=== PATIENT | female | born 1970 | race American Indian/Alaskan Native ===

== ENCOUNTER 2016-08-02 13:56 | Emergency (ER) | payer SELFPAY ==
[2016-08-02 15:15] VITALS: BP 158/105
== END 2016-08-02 16:29 | disposition left against medical advice (07) ==
LOC: ED 13:56
DX: R51 Headache (principal); Z53.21 Procedure and treatment not carried out due to patient leaving prior to being seen by health care provider

== ENCOUNTER 2016-12-11 07:15 | Emergency (ER) | payer OTHER, BC ==
[2016-12-11 07:27] VITALS: BP 118/96
[2016-12-11] MEDS ORDERED: BOOSTRIX IM ONE (08:28)
[2016-12-11] MEDS ORDERED: NORCO 7.5/325 PO ONE (08:28)
[2016-12-11] MEDS ORDERED: FLEXERIL PO ONE (08:28)
[2016-12-11] MEDS ORDERED: XYLOCAINE 1% MPF 5 mL INFILTRATI ONE (08:29)
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
--- NOTE | 2016-12-11 10:14 | XRay Report ---
LUMBOSACRAL SPINE, 3 VIEWS: History: Back pain Findings: The vertebral bodies, disk spaces and posterior elements are intact. No compression deformity or malalignment. The SI joints are symmetric and unremarkable. Impression: 1. No evidence for acute injury to the lumbar spine.
[2016-12-11] MEDS ORDERED: TRIPLE ANTIBIOTIC TP ONE (10:53)
[2016-12-11] MEDS ORDERED: TYLENOL #3 PO ONE (10:53)
== END 2016-12-11 11:24 | disposition home or self-care (01) ==
LOC: ED 07:15
DX: S41.111A Laceration without foreign body of right upper arm, initial encounter (principal); V49.49XA Driver injured in collision with other motor vehicles in traffic accident, initial encounter; X58.XXXA Exposure to other specified factors, initial encounter; Y93.9 Activity, unspecified; Y92.9 Unspecified place or not applicable; Y99.9 Unspecified external cause status
CPT/HCPCS: 72100; 90471; 90715; A6250

== ENCOUNTER 2016-12-18 11:13 | Emergency (ER) | payer OTHER, BC ==
[2016-12-18 11:27] VITALS: BP 137/92
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
== END 2016-12-18 11:55 | disposition home or self-care (01) ==
LOC: ED 11:13
DX: Z48.02 Encounter for removal of sutures (principal)

== ENCOUNTER 2017-07-31 19:18 | Emergency (ER) | payer OTHER, BC ==
[2017-07-31] MEDS ORDERED: CATAPRES ONE (20:40)
[2017-07-31] MEDS ORDERED: CATAPRES PO ONE (20:42)
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
[2017-08-01 01:54] VITALS: BP 149/100
== END 2017-07-31 22:00 | disposition home or self-care (01) ==
LOC: ED 19:18
DX: M79.1 Myalgia (principal)
CPT/HCPCS: 99282

== ENCOUNTER 2017-08-14 15:36 | Emergency (ER) | payer OTHER, BC ==
[2017-08-14 16:26] VITALS: BP 142/91
--- NOTE | 2017-08-14 19:37 | XRay Report ---
FINAL REPORT PROCEDURE: Right knee. TECHNIQUE: Three views. HISTORY: Pain and swelling, knee injury. COMPARISON: No prior studies are available for comparison. FINDINGS: There is a curvilinear piece of bone adjacent to the medial femoral condyle. This may represent an unfused apophysis. I doubt that this represents an acute fracture. The bones otherwise appear intact. There is mild narrowing of the medial compartment of the knee joint. There is some osteophyte formation. The soft tissues are unremarkable. There is no evidence of a knee effusion. IMPRESSION: Osteoarthritis. 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
== END 2017-08-14 18:06 | disposition left against medical advice (07) ==
LOC: ED 15:36
DX: M79.89 Other specified soft tissue disorders (principal); Z53.21 Procedure and treatment not carried out due to patient leaving prior to being seen by health care provider

== ENCOUNTER 2017-08-15 15:38 | Emergency (ER) | payer BC, OTHER ==
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
== END 2017-08-15 17:46 | disposition home or self-care (01) ==
LOC: ED 15:38
DX: M17.11 Unilateral primary osteoarthritis, right knee (principal); M25.561 Pain in right knee
CPT/HCPCS: 99282

== ENCOUNTER 2017-09-05 14:08 | Emergency (ER) | payer BC, OTHER ==
[2017-09-05] MEDS ORDERED: ASPIRIN PO ONE (14:26)
[2017-09-05 15:04] LABS: Basophils % (Auto) 0.5 % (0.0-1.8); Eosinophils # (Auto) 0.1 K/mm3 (0.0-0.4); Eosinophils % (Auto) 1.4 % (0.0-4.3); Hematocrit 36.1 % (30.3-42.9); Lymphocytes # (Auto) 3.4 K/mm3 (1.2-5.4); Lymphocytes % (Auto) 44.9 % (13.4-35.0); Mean Corpuscular HGB Conc 33 % (30-34); Mean Corpuscular Hemoglobin 27 pg (28-32); Mean Corpuscular Volume 82 fl (79-97); Monocytes # (Auto) 0.4 K/mm3 (0.0-0.8); Monocytes % (Auto) 5.6 % (0.0-7.3); Platelet Count 374 K/mm3 (140-440); Red Blood Count 4.42 M/mm3 (3.65-5.03); Red Cell Distribution Width 14.4 % (13.2-15.2)
[2017-09-05 15:13] LABS: BUN/Creatinine Ratio 14; Blood Urea Nitrogen 10 mg/dL (7-17); Calcium 8.6 mg/dL (8.4-10.2); Hemolysis Index 12
[2017-09-05 18:28] VITALS: BP 151/94
[2017-09-05] MEDS ORDERED: PEPCID PO ONE (20:44)
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
--- NOTE | 2017-09-05 21:58 | XRay Report ---
FINAL REPORT PROCEDURE: XR CHEST ROUTINE 2V TECHNIQUE: PA and lateral chest radiographs were obtained. CPT 73772 HISTORY: dyspnea COMPARISON: No prior studies are available for comparison. FINDINGS: Heart: Normal. Mediastinum/Vessels: Normal. Lungs/Pleural space: Normal. Bony thorax: No acute osseous abnormality. Other: IMPRESSION: Normal examination.
== END 2017-09-05 21:27 | disposition home or self-care (01) ==
LOC: ED 14:08
DX: R07.89 Other chest pain (principal); E66.01 Morbid (severe) obesity due to excess calories; Z68.43 Body mass index [BMI] 50.0-59.9, adult; Z98.51 Tubal ligation status
CPT/HCPCS: 36415; 71046; 80048; 84484; 85025; 93005; 93010

== ENCOUNTER 2017-09-29 14:59 | Emergency (ER) | payer BC ==
[2017-09-29 15:20] VITALS: BP 158/90
--- NOTE | 2017-09-29 17:31 | Emergency Department Report ---
Blank Doc - Documentation Documentation: Patient is a 71-iqhg-xys-[place] female who is presenting with chest pain. Patient states for the past week she's been having chest pain it lasts up to 5 is times this is a tight sensation which shortly breath. Systems sometimes it' s with exertion sometimes this was rest she denies any nausea or vomiting. She was here about a month ago for his acid reflux states this is different. Patient does have a history of borderline elevated blood pressure. Patient will be sent f to a treatment room for blood work including a troponin EKG is within normal limits patient will also have a chest x-ray will be reassessed. Or
[2017-09-29 17:57] LABS: Basophils # (Auto) 0.1 K/mm3 (0.0-0.1); Basophils % (Auto) 0.9 % (0.0-1.8); Eosinophils # (Auto) 0.1 K/mm3 (0.0-0.4); Eosinophils % (Auto) 0.8 % (0.0-4.3); Lymphocytes # (Auto) 3.5 K/mm3 (1.2-5.4); Lymphocytes % (Auto) 42.5 % (13.4-35.0); Mean Corpuscular HGB Conc 33 % (30-34); Mean Corpuscular Hemoglobin 27 pg (28-32); Mean Corpuscular Volume 82 fl (79-97); Monocytes # (Auto) 0.6 K/mm3 (0.0-0.8); Monocytes % (Auto) 6.7 % (0.0-7.3); Platelet Count 366 K/mm3 (140-440); Red Blood Count 4.49 M/mm3 (3.65-5.03); Red Cell Distribution Width 14.4 % (13.2-15.2)
[2017-09-29 18:10] LABS: BUN/Creatinine Ratio 12; Blood Urea Nitrogen 7 mg/dL (7-17); Hemolysis Index 15
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
--- NOTE | 2017-09-29 19:42 | XRay Report ---
FINAL REPORT EXAM: XR CHEST ROUTINE 2V HISTORY: chest pain TECHNIQUE: Two view chest PA and lateral PRIORS: Comparison is dated September 05, 2017 FINDINGS: Cardiac and mediastinal contours are unremarkable. No focal pulmonary infiltrate is identified. No pleural fluid collection seen. Pulmonary vasculature is unremarkable. IMPRESSION: Negative two-view chest
== END 2017-09-29 18:56 | disposition home or self-care (01) ==
LOC: ED 14:59
DX: R07.9 Chest pain, unspecified (principal); E66.01 Morbid (severe) obesity due to excess calories
CPT/HCPCS: 36415; 71046; 80048; 84484; 85025; 93005; 93010

== ENCOUNTER 2017-10-25 01:15 | Emergency (ER) | payer BC ==
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
--- NOTE | 2017-10-25 07:17 | XRay Report ---
FINAL REPORT EXAM: XR CHEST ROUTINE 2V HISTORY: CP TECHNIQUE: PA and lateral views of the chest were obtained and compared to the study of 09/29/2017 FINDINGS: The heart size and mediastinum appear normal. The lungs are clear. The lungs are not congested. Pleural fluid is not seen. The skeletal structures do not show any acute changes. IMPRESSION: No active chest disease.
[2017-10-25 07:35] LABS: Basophils % (Auto) 0.4 % (0.0-1.8); Eosinophils # (Auto) 0.2 K/mm3 (0.0-0.4); Eosinophils % (Auto) 2.6 % (0.0-4.3); Hematocrit 36.5 % (30.3-42.9); Hemoglobin 11.8 gm/dl (10.1-14.3); Lymphocytes # (Auto) 3.7 K/mm3 (1.2-5.4); Lymphocytes % (Auto) 53.9 % (13.4-35.0); Mean Corpuscular HGB Conc 32 % (30-34); Mean Corpuscular Hemoglobin 26 pg (28-32); Mean Corpuscular Volume 82 fl (79-97); Monocytes # (Auto) 0.5 K/mm3 (0.0-0.8); Platelet Count 357 K/mm3 (140-440); Red Blood Count 4.45 M/mm3 (3.65-5.03); Red Cell Distribution Width 14.3 % (13.2-15.2)
[2017-10-25 07:51] LABS: BUN/Creatinine Ratio 14; Blood Urea Nitrogen 10 mg/dL (7-17); Calcium 9.5 mg/dL (8.4-10.2); Hemolysis Index 4
[2017-10-25] MEDS ORDERED: TORADOL IM ONE (08:34)
[2017-10-25 10:28] VITALS: BP 171/110
== END 2017-10-25 10:30 | disposition home or self-care (01) ==
LOC: ED 01:15
DX: I10 Essential (primary) hypertension (principal); R07.89 Other chest pain; E66.01 Morbid (severe) obesity due to excess calories; Z98.51 Tubal ligation status
CPT/HCPCS: 36415; 71046; 80048; 82550; 83880; 84484; 85025; 93005; 93010; 96372; 99284; J1885

== ENCOUNTER 2018-09-25 10:51 | Day surgery (SDC) | payer BC ==
[~2018-09-25 10:51] MED LIST: ANCEF/STERILE WATER 2 GM/20 ML 2 GM/20 ML SYRINGE IV NR; LACTATED RINGERS 1,000 ML IV SCH; NEURONTIN PO SCH; TYLENOL PO ONE
--- NOTE | 2018-09-25 10:57 | Short Stay Summary ---
Short Stay Documentation Date of service: 09/25/18 - History H&P: obtained from office - Allergies and Medications Current Medications: Allergies No Known Allergies Allergy (Verified 09/24/18 12:45) Home Medications Medication Instructions Recorded Confirmed Last Taken Type Aspirin [Adult Aspirin] 81 mg PO DAILY 01/08/18 09/24/18 Unknown History amLODIPine [Norvasc] 5 mg PO DAILY 09/24/18 09/24/18 Unknown History traMADol [Ultram] 50 mg PO Q6HR PRN 09/24/18 09/24/18 Unknown History Active Medications Celecoxib (Celebrex) 200 mg PO PREOP NR Stop: 09/25/18 23:59 Gabapentin (Neurontin) 900 mg PO PREOP EVETTE Lactated Ringer's (Lactated Ringers) 1,000 mls @ 75 mls/hr IV DIRECT EVETTE Cefazolin Sodium (Ancef/Sterile Water 2 Gm/20 Ml) 2 gm in 20 mls @ 80 mls/hr IV PREOP NR; Protocol Stop: 09/25/18 23:59 - Physical exam General appearance: no acute distress Lungs: Normal air movement Neurological: Normal speech - Brief post op/procedure progress note Date of procedure: 09/25/18 (dictation: [id number]) Pre-op diagnosis: ventral and umbilical hernia Post-op diagnosis: other (incarcerated ventral hernia and reducible umbilical hernia) Procedure: robotic ventral and umbilical hernia repair IVF 2100 EBL 50 UOP 750 Anesthesia: GETA Findings: incarcerated ventral hernia with omentum; reducible umbo hernia. adhesions in the LLQ. Surgeon: MART ALEGRIA Estimated blood loss: 50-100ml Pathology: none Condition: stable - Hospital course Hospital course: uneventful - Disposition Condition at discharge: Stable Disposition: DC-01 TO HOME OR SELFCARE Short Stay Discharge Plan Activity: other Wound: open to air, keep clean and dry Additional Instructions: Post-op Instructions: Apply an ice pack to the wounds for 10 to 20 minutes at a time. Do this at least 4 to 5 times a day. You may shower tomorrow. Pat dry the wounds. For the 1st 2 days, use ibuprofen and Tylenol on a scheduled basis. Take 600 mg of ibuprofen with food every 6 hours. Take 500 mg of Tylenol every 6 hours. Alternate these 2 medications. As an example, take the ibuprofen 1st. 3 hours later, take the Tylenol. After another 3 hours, take the ibuprofen again. Keep alternating this pattern for the 1st 2 days. As you can see, you will be taking each medicine every 6 hours. After 2 days, take the medications as needed for pain. Only take the prescription medicine if you have severe pain and the above measures are not working. Diet Have something light tonight, such as liquids. May have anything that you are comfortable with thereafter. It is important to stay well hydrated. No driving until you return to the surgery clinic for your follow-up visit. Wear abdominal binder during the day. May keep off at night if it is uncomfortable. Please call if you have any questions. Follow up with: PRIMARY MD RAFAEL [Primary Care Provider] - 7 Days MART ALEGRIA MD [Staff Physician] - 14 Days Forms: Outpatient Surgery DC Inst. Prescriptions: Oxycodone HCl [oxyCODONE] 10 mg PO Q6H PRN #30 tablet PRN Reason: Pain , Severe (7-10)
[2018-09-25] MEDS ORDERED: SUBLIMAZE ONE ×2 (11:17→11:53)
[2018-09-25] MEDS ORDERED: DIPRIVAN 10 MG/ML IV ONE (11:17)
[2018-09-25] MEDS ORDERED: ZEMURON IV ONE ×2 (11:23→16:08)
[2018-09-25] MEDS ORDERED: QUELICIN ONE ×2 (11:23→16:08)
[2018-09-25] MEDS ORDERED: ROBINUL ONE ×2 (11:23→18:17)
[2018-09-25] MEDS ORDERED: XYLOCAINE MPF 2% ONE (11:23)
[2018-09-25] MEDS ORDERED: NEO SYNEPHRINE/NS Syringe(OR USE) IV ONE (11:23)
[2018-09-25] MEDS ORDERED: XYLOCAINE 1% 20 mL ONE ×2 (11:54→11:56)
[2018-09-25] MEDS ORDERED: VERSED ONE (11:54)
[2018-09-25] MEDS ORDERED: MARCAINE-EPI 0.25%-1:200,000 INFILTRATI ONE (11:55)
[2018-09-25] MEDS ORDERED: MARCAINE 0.5% INFILTRATI ONE (11:56)
[2018-09-25] MEDS ORDERED: TYLENOL PO ONE (12:00)
--- NOTE | 2018-09-25 12:47 | Anesthesia Consultation ---
Anesthesia Consult and Med Hx - Airway Anesthetic Teeth Evaluation: Poor ROM Head & Neck: Adequate Mental/Hyoid Distance: Adequate Mallampati Class: Class II Intubation Access Assessment: Probably Good - Pulmonary Exam CTA: Yes - Cardiac Exam Cardiac Exam: RRR - Pre-Operative Health Status ASA Pre-Surgery Classification: ASA3 Proposed Anesthetic Plan: General Nerve Block: Tap Block - Pulmonary Hx Smoking: No Hx Asthma: No - Cardiovascular System Hx Hypertension: Yes (2018) - Central Nervous System Hx Psychiatric Problems: No - Other Systems Hx Alcohol Use: Yes Hx Substance Use: No Hx Obesity: Yes - Additional Comments Anesthesia Medical History Comments: 47 year old with HTN , peripheral neuropathy and obesity for robotic hernia repair , will get GA and TAP block
--- NOTE | 2018-09-25 12:48 | Anesthesia Day of Surgery ---
Anesthesia Day of Surgery - Day of Surgery Patient Examined: Yes Patient H&P Reviewed: Yes Patient is NPO: Yes
[2018-09-25] MEDS ORDERED: DILAUDID IV PRN ×2 (13:00→18:16)
[2018-09-25] MEDS ORDERED: ZOFRAN IV PRN ×2 (13:00→18:16)
[2018-09-25] MEDS ORDERED: NACL 0.9% IR ONE (14:48)
[2018-09-25] MEDS ORDERED: WATER FOR IRRIG STERILE IR ONE (14:48)
[2018-09-25] MEDS ORDERED: NARCAN 0.4 MG/1 ML IV PRN (18:16)
[2018-09-25] MEDS ORDERED: REGLAN IV PRN (18:16)
[2018-09-25] MEDS ORDERED: BLOXIVERZ ONE (18:17)
[2018-09-25] MEDS ORDERED: TORADOL ONE (18:17)
[2018-09-25 19:40] VITALS: BP 150/91
--- NOTE | 2018-09-26 01:01 | Operative Report ---
PREOPERATIVE DIAGNOSIS: Symptomatic ventral hernia. POSTOPERATIVE DIAGNOSES: Incarcerated ventral hernia and umbilical hernia. PROCEDURE: Robotic-assisted ventral and umbilical hernia repairs with primary closure and mesh placement. ATTENDING PHYSICIAN: Jeremiah Ramirez MD ANESTHESIA: General. ESTIMATED BLOOD LOSS: Less than 50 mL. FLUIDS: 2100 mL. URINE OUTPUT: 250 mL. FINDINGS: The patient had an incarcerated omentum in a ventral hernia that was approximately 3 cm in diameter. There was also a small umbilical hernia that was slightly less than 2 cm in diameter, but it had no incarcerated contents. The contents were reducible. Adhesions were noted in the lower portion of the abdomen going towards the left lower quadrant. The rest of the abdomen was normal. SPECIMENS: None. IMPLANTS: Ventralight mesh, 15 x 20 cm mesh was used. DRAINS: None. COMPLICATIONS: Stable, transferred to Recovery Room. INDICATIONS: This is a 47-year-old female who presented to the office with complaints of mid abdominal pain. The patient was found to have a ventral hernia on examination that was nonreducible. Over the time, the patient reports the hernia has become larger and more painful. The patient would like repair. CT scan had been done, which showed 2 hernias, 1 incarcerated ventral hernia and another small umbilical hernia. The patient has been in need for robotic-assisted repair. Procedure, risks and benefits were explained to the patient. Risks included but were not limited to infection, bleeding, pain, possible recurrence, possible need for more procedures in the future. The patient understood and consented. DESCRIPTION OF PROCEDURE: The patient was brought to the operating room and placed on the table in supine position. After adequate general anesthesia was established, the patient was prepped and draped in usual sterile fashion. A bump had been placed below the left side of the abdomen and the bed was flexed. SCDs were in place. Antibiotics have been given. Timeout was called. I began by placing a Veress needle in the left upper quadrant at Glez's point. I was able to insufflate on the first attempt. We then replaced this with a [address] using the Optiview technique. We entered the peritoneal cavity safely. There was no injury to the underlying structures. Under direct vision, I placed another 8-mm port in the left lower quadrant and then a 12 mm port as far lateral as possible in between the 2 ports. We replaced the 5 with 8 under direct vision. At this point, I inserted the mesh, sutures and gauze and then I proceeded to the console. Please note we had docked the robot at this point. Initially I began by taking down the adhesions that extended from the ventral hernia down to the left lower quadrant. Once these adhesions were taken down, I then turned my attention to the incarcerated contents. Omentum was incarcerated within the hernia gradually by taking down the adhesions and holding steady pressure, I was able to reduce the contents completely. Extra time was required to free the incarcerated contents due to severity of the adhesions. There was no evidence of any ischemia or necrotic tissue. All tissue was viable. We now had 2 completely opened hernias on the sac closely. I began creating the peritoneal flap. This also required extra time as the peritoneum was densely adherent to the overlying fascia in some areas. We were able to extend the flap all the way to the right side. We did have a few small holes along the way that we were able to get the 2 hernia sacs out in their entirety. Once that was done, we then closed the fascial defects with 2-0 V-Loc sutures. Two separate sutures were used for each fascial defect. We had very good closure of the fascial defect. We then placed the mesh. It turned out the mesh was slightly bigger than what we truly needed. I ended up modifying the size of the mesh. The end size was approximately 10 x 15 cm instead of 15 x 20. It covered the defect very nicely with a fair amount of overlap. We secured it in various spots to the anterior abdominal wall with interrupted 2-0 Vicryl sutures. Once that was done, we then proceeded to close the peritoneum. I used a 3-0 V-Loc suture to close the peritoneum. We had some excess tension on the peritoneum that prevented complete closure in the middle. Therefore, with the very large hernia sac that we had dissected free that was completely intact. I used them to cover up any small adjacent defects using the 3-0 V-Loc suture. I then attached this excess hernia sac to the anterior abdominal wall, covering up any small peritoneal defect. At the end, we had a very nice closure of the peritoneum with complete coverage of any small defects. The mesh laid very nicely. We did place in 14-gauge Angiocath catheter through the ventral hernia skin in order to desufflate that space. It appeared to desufflate very nicely. At this point, we then converted to the laparoscopic case in order to finish the case. Under direct vision, I removed 3 needles that we had attached to the anterior abdominal wall so that we would not lose them. I removed the Ray-Beverly and then the small excesses of the mesh that we cut off. Using the Chi-Dalton fascial closure device, I closed the 12 mm port using 0 Vicryl stitch. We then desufflated the abdomen. The patient had already received TAP block, so we did not inject any local into the port sites. The skin sites were closed with 4-0 Monocryl subcuticular stitches. Skin was cleaned and dried. The patient tolerated the procedure well. There were no complications. All counts were correct at the end of the case. We removed the Kuo catheter at the end of the case and her OG tube. I spoke with the son at the end. He was appreciative of the help. JOB# [id number] LEDA/GAMA CONNOLLY
== END 2018-09-25 10:52 | disposition home or self-care (01) ==
LOC: OR 10:51
PROVIDERS: ATTEND Surgery
DX: K43.6 Other and unspecified ventral hernia with obstruction, without gangrene (principal); I10 Essential (primary) hypertension; E66.2 Morbid (severe) obesity with alveolar hypoventilation; K21.9 Gastro-esophageal reflux disease without esophagitis; M19.90 Unspecified osteoarthritis, unspecified site; Z72.89 Other problems related to lifestyle; Z68.43 Body mass index [BMI] 50.0-59.9, adult; Z98.51 Tubal ligation status; Z98.891 History of uterine scar from previous surgery; Z79.82 Long term (current) use of aspirin; Z79.899 Other long term (current) drug therapy; Z86.2 Personal history of diseases of the blood and blood-forming organs and certain disorders involving the immune mechanism
CPT/HCPCS: 49653; 64450; 81025; C1781; J0330; J0690; J1885; J2250; J2370; J2704; J2710; J3010; J7120; S2900

== ENCOUNTER 2019-06-18 09:59 | Day surgery (SDC) | payer BC ==
[2019-06-18] MEDS ORDERED: SODIUM CHLORIDE 0.9% 1000 ML 1,000 ML IV SCH (10:00)
--- NOTE | 2019-06-18 10:40 | Anesthesia Consultation ---
Anesthesia Consult and Med Hx Date of service: 06/18/19 - Airway Anesthetic Teeth Evaluation: Good, Caps (#8 hicks cap) ROM Head & Neck: Adequate Mental/Hyoid Distance: Adequate Mallampati Class: Class III Intubation Access Assessment: Possibly Difficult - Pre-Operative Health Status ASA Pre-Surgery Classification: ASA3 Proposed Anesthetic Plan: MAC - Pulmonary Hx Smoking: No Hx Asthma: No - Cardiovascular System Hx Hypertension: Yes (not taking meds for the last 4 months) - Gastrointestinal Hx Gastroesophageal Reflux Disease: Yes - Other Systems Hx Obesity: Yes (BMI 55.4)
--- NOTE | 2019-06-18 10:41 | Anesthesia Day of Surgery ---
Anesthesia Day of Surgery - Day of Surgery Patient Examined: Yes Patient H&P Reviewed: Yes Patient is NPO: Yes
[2019-06-18] MEDS ORDERED: PROPOFOL 200 MG/20 ML VIAL IV ONE ×2 (11:17)
[2019-06-18] MEDS ORDERED: fentaNYL 100 MCG/2 ML INJ ONE (11:17)
--- NOTE | 2019-06-18 11:49 | Short Stay Summary ---
Short Stay Documentation Date of service: 06/18/19 Narrative H&P: The patient presents for EGD to evaluate GERD sx refractory to medications and for her first average risk screening colonoscopy. - History Past Medical History: GERD, hypertension, other (Morbid obesity) Past Surgical History: , hernia repair Social history: no significant social history - Allergies and Medications Current Medications: Allergies No Known Allergies Allergy (Verified 09/24/18 12:45) Home Medications Medication Instructions Recorded Confirmed Last Taken Type Aspirin [Adult Aspirin] 81 mg PO DAILY 01/08/18 06/18/19 09/21/18 09:00 History amLODIPine 5 mg PO DAILY 09/24/18 06/18/19 09/25/18 09:00 History traMADoL [Ultram 50 MG tab] 50 mg PO Q6HR PRN 09/24/18 06/18/19 09/23/18 08:00 History Oxycodone HCl [oxyCODONE] 10 mg PO Q6H PRN #30 tablet 09/25/18 06/18/19 Unknown Rx Active Medications Sodium Chloride (Nacl 0.9% 1000 Ml) 1,000 mls @ 50 mls/hr IV DIRECT EVETTE Last Admin: 06/18/19 10:50 Dose: 50 mls/hr Documented by: - Physical exam General appearance: no acute distress, well-nourished, obese Integumentary: no rash, no growths, no abnormal pigmentation HEENT: Atraumatic, PERRLA, EOMI, Mucous membr. moist/pink Lungs: Normal air movement Breasts: deferred Heart: Regular rate, Normal S1, Normal S2, No murmurs Gastrointestinal: normoactive bowel sounds, no tenderness, no distended, no masses, no guarding, no organomegaly, obese Female Genitourinary: deferred Rectal Exam: normal exam-external/orifice, no mass Extremities: no ischemia, pulses intact, pulses symmetrical, No edema, normal temperature, normal color, Full ROM Neurological: Normal gait, Normal speech, Strength at 5/5 X4 ext, Normal tone, Sensation intact, Cranial nerves 3-12 NL - Brief post op/procedure progress note Date of procedure: 06/18/19 Findings: see dictated reports Estimated blood loss: none Pathology: list (antral biopsies for h.pylori) Specimen disposition: to lab Condition: stable - Disposition Condition at discharge: Good Disposition: DC-01 TO HOME OR SELFCARE - Discharge Diagnoses (1) GERD (gastroesophageal reflux disease) Status: Acute (2) Colon cancer screening Status: Acute Short Stay Discharge Plan Activity: other (No driving for 24 hours) Weight Bearing Status: Weight Bear as Tolerated Diet: regular Follow up with: HEIDE CHRISTOPHER MD [Primary Care Provider] - 7 Days
[2019-06-18] MEDS ORDERED: hydrALAZINE 20 MG/1 ML INJ ONE (11:54)
--- NOTE | 2019-06-18 11:56 | Operative Report ---
Operative Report Operative Report: Date of procedure: 09/02/2019 Procedure: Esophagogastroduodenoscopy with biopsies of the antrum for H. pylori Preprocedure diagnosis: Persistent heartburn despite medications. Dyspepsia. Post procedure diagnosis: Normal study Endoscopist: Dr. Foster Anesthesia: Monitored anesthesia care per anesthesia department Medications: Propofol per anesthesia Estimated blood loss: 0 After careful discussion of the nature and purpose of the procedure as well as details the technique risks benefits and alternatives consent was obtained. The patient was placed in the left lateral decubitus position and medicated per anesthesia. The tip of the Olympus video scope was passed per orum under direct vision into the esophagus and advanced into the stomach and descending duodenum. The descending duodenum the duodenal bulb and pylorus were symmetrical and normal. The scope was withdrawn into the stomach and the stomach then gently insufflated with air. The antrum was normal. Biopsies were taken for H. pylori in the antrum. The stomach was further insufflated and the scope was then retroflexed and partially withdrawn. The cardia, fundus, and body of the stomach were within normal limits and easily distensible.The scope was then withdrawn in the forward position. The esophagogastric junction was at 38 cm. The esophageal body was normal throughout. The procedure was was well tolerated and the patient was observed in recovery. Impressions: Normal appearing upper digestive tract. Plan: Continue PPI therapy, diet and lifestyle changes. Weight reduction. Reduction of opiates as they may be a cause of delayed gastric emptying and reflux in some cases. Office follow-up in 3 months. Await results of biopsies for H. pylori. Electronically signed: Russell Foster MD
--- NOTE | 2019-06-18 11:58 | Operative Report ---
Operative Report Operative Report: Date of procedure: 06/18/2019 Preprocedure diagnosis:Colon cancer screening, average risk. No prior studies. Post procedure diagnosis: Normal study Procedure: Colonoscopy to the cecum Endoscopist: Dr. Foster Anesthesia: Monitored anesthesia care per anesthesia department Estimated blood loss: 0 Medications: Monitored anesthesia care. See separate report by anesthesia for details. After careful discussion of the nature and purpose of the procedure as well as details of the technique risks benefits and alternatives the patient gave consent. Please see recent history and physical from the office. The patient was placed in the left lateral decubitus position and medicated per anesthesia. A rectal exam was performed sphincter tone was normal there were no masses palpable. The Olympus colonoscope was passed transanally and advanced under continuous direct vision without difficulty to the cecum. The colon was well prepared. The cecum was normal. The ascending colon was normal and on forward and retroflexed views. The transverse colon, descending colon, and sigmoid colon were normal. The rectum was normal on forward and retroflexed views. The procedure was well-tolerated overall and the patient was observed in recovery. Conclusions: Normal colonoscopy to the cecum. Plan: Repeat colonoscopy in 10 years, sooner if clinically indicated. Signed electronically: Russell Foster M.D.
[2019-06-18] MEDS ORDERED: LIDOCAINE MPF (2%) 20 MG/1 ML VIAL 5 ML ONE (12:00)
[2019-06-18 13:10] VITALS: BP 137/86
--- NOTE | 2019-06-18 13:28 | Post Anesthesia Evaluation ---
- Post Anesthesia Evaluation Patient Participated: Yes Airway Patent: Yes Stable Respiratory Function: Yes Nausea/Vomiting: No Temp > 96.8F: Yes Pain Manageable: Yes Adequeate Hydration: Yes Anesthesia Complications: No
== END 2019-06-18 10:00 | disposition home or self-care (01) ==
LOC: GIO 09:59
PROVIDERS: ATTEND Internal Medicine Gastroenterology
DX: Z12.11 Encounter for screening for malignant neoplasm of colon (principal); K29.50 Unspecified chronic gastritis without bleeding; K30 Functional dyspepsia; I10 Essential (primary) hypertension; K21.9 Gastro-esophageal reflux disease without esophagitis; E66.2 Morbid (severe) obesity with alveolar hypoventilation; B96.81 Helicobacter pylori [H. pylori] as the cause of diseases classified elsewhere; Z79.899 Other long term (current) drug therapy; Z79.82 Long term (current) use of aspirin; Z68.43 Body mass index [BMI] 50.0-59.9, adult; Z98.891 History of uterine scar from previous surgery; Z98.890 Other specified postprocedural states
CPT/HCPCS: 43239; 45378; 81025; 88305; 88342; J0360; J2704; J3010; J7030

== ENCOUNTER 2020-01-31 10:48 | Outpatient (CLI) | payer BC | END 2020-01-31 10:49 | disposition home or self-care (01) | LOC: LABHHL 10:48 | PROVIDERS: ATTEND Obstetrics & Gynecology | DX: Z01.419 Encounter for gynecological examination (general) (routine) without abnormal findings (principal) | CPT/HCPCS: 36415 ==

== ENCOUNTER 2021-04-12 01:01 | Outpatient (CLI) | payer BC | END 2021-04-12 01:02 | disposition home or self-care (01) | LOC: LAB 01:01 | PROVIDERS: ATTEND Obstetrics & Gynecology | DX: Z01.419 Encounter for gynecological examination (general) (routine) without abnormal findings (principal) | CPT/HCPCS: 36415 ==

== ENCOUNTER 2021-07-02 18:36 | Emergency (ER) | payer BC ==
[2021-07-02] MEDS ORDERED: predniSONE 20 MG TAB PO ONE (21:50)
[2021-07-02] MEDS ORDERED: KETOROLAC 10 MG TAB PO ONE (21:50)
[2021-07-02] MEDS ORDERED: CYCLOBENZAPRINE 10 MG TAB PO ONE (21:51)
[2021-07-02] MEDS ORDERED: ACETAMINOPHEN W/CODEINE 300-30 MG TAB PO ONE (21:51)
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
[2021-07-02 22:46] VITALS: BP 165/98
== END 2021-07-02 22:37 | disposition home or self-care (01) ==
LOC: ED 18:36
DX: M54.16 Radiculopathy, lumbar region (principal); I10 Essential (primary) hypertension
CPT/HCPCS: 99282